=== PATIENT | female | born 1960 | race Native Hawaiian/Other Pacific Islander ===

== ENCOUNTER 2022-07-23 11:18 | Inpatient (IN) | payer SELFPAY ==
[2022-07-23] VITALS (12 sets, daily range): BP systolic 83–131; BP diastolic 51–88; PULSE 58–80; TEMP 97.5–98.6
[~2022-07-23] VITALS: Ht 152.4 cm; Wt 57.0 kg
[2022-07-23 12:45] LABS: BASO # 0.1 K/mm3 (0.0-0.2); BASO % 1.6 % (0.0-2.0); EOS # 0.4 K/mm3 (0.0-0.7); EOS % 4.9 % (0.0-4.0); GRAN % 69.4 % (42.2-75.2); HEMOGLOBIN 10.3 g/dl (12.5-16.0); LYMPH # 1.3 K/mm3 (1.2-3.4); LYMPH % 14.8 % (20.0-51.0); MEAN CELL VOLUME 94 fl (80.0-100.0); MEAN CORPUSCULAR HEMOGLOBIN 32 pg (27-31); MEAN CORPUSCULAR HGB CONC 34 g/dl (33.0-37.0); MEAN PLATELET VOLUME 10.9 fl (7.4-10.4); MONO # 0.8 K/mm3 (0.1-0.6); MONO % 9.1 % (1.7-9.3); PLATELET COUNT 96 K/mm3 (130-400); RED BLOOD COUNT 3.26 M/mm3 (4.10-5.30); REDCELL DISTRIBUTION WIDTH-CV 13.3 % (11.5-14.5)
[2022-07-23 12:46] LABS: HEMATOCRIT 30.5 % (37.0-47.0)
[2022-07-23 12:56] LABS: ALBUMIN 2.7 gm/dL (3.4-4.8); BILIRUBIN,TOTAL 1.2 mg/dL (0.2-1.2); C-REACTIVE PROTEIN 3.75 mg/dL (0.00-0.50); CALCIUM 8.1 mg/dL (8.4-10.2); CREATININE, serum 0.83 mg/dL (0.57-1.11); TOTAL PROTEIN 6.6 gm/dL (6.2-8.1)
--- NOTE | 2022-07-23 15:20 | NUR ---
pt admitted to floor, pt very drowsy. bs checked and was 46. dr loera notified, order for 1 amp dextrose to be administered.
[2022-07-23] MEDS ORDERED: ULTRAM 50MG TAB50 MG PO (16:45)
[2022-07-23] MEDS ORDERED: PREDNISONE20 MG PO (16:46)
--- NOTE | 2022-07-23 17:15 | NUR ---
pt off floor for surgery
--- NOTE | 2022-07-23 19:33 | NUR ---
RETURNS FROM SURGERY VIA BED. IS DROWSY, AWAKENS TO VERBAL STIMULI. BS=93. HAS IVF TO DALY INFUSING WITHOUT PROBLEM. FAMILY AT BEDSIDE.
--- NOTE | 2022-07-23 21:49 | NUR ---
PT TURNS TO LEFT SIDE. REPORTS PAIN TO ABD. HAS LAP SITES X3, 2 WITH BANDAIDS AND ONE GLUED. MEDICATED WITH MORPHINE 2MG IVP NOW. HAS BEEN UP TO BSC TO VOID. SCDS ON.
[2022-07-24] VITALS (12 sets, daily range): BP systolic 90–138; BP diastolic 54–69; PULSE 54–68; TEMP 97.4–97.9
--- NOTE | 2022-07-24 | NUR ---
ASSISTED TO BSC, VOIDS AND BACK TO BED. TAKING WATER WITHOUT N/V.
--- NOTE | 2022-07-24 05:00 | NUR ---
PT AWAKE, VSS. IVF CONTINUE TO DALY. ABD SOFT. OFFERED SOMETHING TO EAT, REFUSES AT THIS TIME. DRINKING WATER WITHOUT PROBLEM.
[2022-07-24 06:53] LABS: BASO % 0.3 % (0.0-2.0); EOS % 0.2 % (0.0-4.0); GRAN # 4.9 K/mm3 (1.4-6.5); GRAN % 86.3 % (42.2-75.2); LYMPH # 0.6 K/mm3 (1.2-3.4); LYMPH % 10.3 % (20.0-51.0); MEAN CELL VOLUME 96 fl (80.0-100.0); MEAN CORPUSCULAR HGB CONC 33 g/dl (33.0-37.0); MEAN PLATELET VOLUME 11.5 fl (7.4-10.4); MONO # 0.2 K/mm3 (0.1-0.6); MONO % 2.6 % (1.7-9.3); PLATELET COUNT 63 K/mm3 (130-400); RED BLOOD COUNT 2.92 M/mm3 (4.10-5.30); REDCELL DISTRIBUTION WIDTH-CV 13.3 % (11.5-14.5)
[2022-07-24 07:07] LABS: HEMOGLOBIN 9.2 g/dl (12.5-16.0); MEAN CORPUSCULAR HEMOGLOBIN 32 pg (27-31)
[2022-07-24 07:16] LABS: CALCIUM 7.3 mg/dL (8.4-10.2); CREATININE, serum 0.81 mg/dL (0.57-1.11); POTASSIUM 3.4 mmol/L (3.5-4.5)
--- NOTE | 2022-07-24 09:15 | NUR ---
Pt doing okay this morning. She appears to have some pain with movement, otherwise okay. Pt is refusing pain medication at this time. Pt is also refusing the prednisone, states she only takes it when she has knee pain. Pt ate small amount of breakfast, no complaints of N/V. Pt ambulated to the restroom with walker and standby assist. Pt reports that she does use a walker at home. No other needs, will continue to monitor
--- NOTE | 2022-07-24 11:46 | NUR ---
Desk Top Publisher rounds: Patient and [id number] in room. Patient had gall bladder surgery and now has been told that there is a problem with her liver. Desk Top Publisher prayed for healing and gave thanksgiving that the problem with the liver was discovered. After the prayer, the [id number] expressed concern that Medicaid would cover the costs. We talked about the holiday weekend and that the Medical Social Workers would likely be attempting to speak with the Medicaid personnel on Monday. [id number] asked for prayers for that. Desk Top Publisher prayed for Medicaid to pay the hospital costs.
--- NOTE | 2022-07-24 16:19 | NUR ---
This Hospital Account Manager and [facility] Hospital Account Manager attempted to meet with patient for intake assessment/discharge planning, notes concern for patient language barrier. Patient does request the lathe operator service is utilized. Patient chart indicates she lives in [place], uncertain if she has a spouse. Language barrier is noted. She reports she lives with her son, Renetta Delgado ([phone]); chart indicates she lives alone. She stated her son cares for her because she does not have a daughter to care for her, there may be cultural factors to further determine with lathe operator service. She states he does everything for her, "He is my guardian," but indicates this is not a legal guardian through the court system. She said he pays bills and provides food. She indicated she can't go back, but further information is difficult to discern at this time. She did indicate she has paperwork for Medicaid in process, "I need help." Hospital Account Manager requested for follow up with patient to complete intake assessment with the lathe operator service.
[2022-07-25] VITALS (11 sets, daily range): BP systolic 92–174; BP diastolic 48–87; PULSE 57–77; TEMP 97.6–99
--- NOTE | 2022-07-25 06:16 | NUR ---
PT REMAINS SBA FOR TRANSFFERS. ALL 3 INCISION SITES APPEAR CDI, WITH BANDAIDS IN PLACE. DENIES PAIN ON THIS SHIFT. LSCTA. BOWEL SOUNDS ARE ACTIVE. PT DID NOT SPEAK ON THIS SHIFT, BUT WOULD ANSWER 'YES' OR 'NO' QUESTIONS.
[2022-07-25 07:21] LABS: MEAN CELL VOLUME 94 fl (80.0-100.0); MEAN CORPUSCULAR HGB CONC 34 g/dl (33.0-37.0); MEAN PLATELET VOLUME 11.3 fl (7.4-10.4); PLATELET COUNT 69 K/mm3 (130-400); RED BLOOD COUNT 2.61 M/mm3 (4.10-5.30); REDCELL DISTRIBUTION WIDTH-CV 13.3 % (11.5-14.5)
[2022-07-25 07:22] LABS: HEMATOCRIT 24.5 % (37.0-47.0); HEMOGLOBIN 8.3 g/dl (12.5-16.0); MEAN CORPUSCULAR HEMOGLOBIN 32 pg (27-31)
[2022-07-25 07:44] LABS: CALCIUM 7.5 mg/dL (8.4-10.2); CREATININE, serum 1.15 mg/dL (0.57-1.11); MAGNESIUM 1.6 mg/dL (1.6-2.6); POTASSIUM 4.8 mmol/L (3.5-4.5)
[2022-07-25 07:57] LABS: BAND 13 % (0-10); LYMPHOCYTE 7 % (20.0-51.0); NEUTROPHILS 77 % (42.0-75.2)
[2022-07-25 07:58] LABS: PLATELET ESTIMATE DECREASED (NORMAL)
[2022-07-25 08:42] LABS: INR 1.3 (0.8-3.0); PROTHROMBIN TIME 14.9 SECONDS (9.7-12.8)
--- NOTE | 2022-07-25 09:00 | NUR ---
Pt doing okay, little motivation. Pt does appear weak transfering to the bathroom and then repositioning in bed. Family seems this is baseline for her. Pt does have complaints of pain with movement, but refuses pain medication. Pt is tolerating general diet with no complaints
--- NOTE | 2022-07-25 11:00 | NUR ---
Pt back resting in bed. Pt still just appears to have little energy. Continues to refuse pain medication. Pt getting up to the restroom with standby assist with a walker.
--- NOTE | 2022-07-25 13:20 | NUR ---
SW met with pt to complete intake with son and family bedside. Pt does not speak Bulgarian and son translated for pt. Son reports his mother lives at home with him and Alexandra is Renetta @ [phone]. Son, reports pt independent but needs help with showering. Pt has cane and walker. PCP is Dr. Brigido Mason at [facility] and gets medications from [facility] in [place]. Pt would like help with medicaid application and gave SW assistance application to turn in. No other needs at this time. SW await for further recommendations and follow up as needed. DC: Home
--- NOTE | 2022-07-25 21:37 | NUR ---
PATIENT IS RESTING IN BED.PATIENT REPORTS OF ABD PAIN MEDS ADMINISTERED PER MAR.PATIENT IS ON IV FLUIDS INFUSING WELL.ASSESSMENT DONE.SAFETY MEASURES IN PLACE.NO OTHER NEEDS AT THIS TIME.
--- NOTE | 2022-07-25 23:51 | NUR ---
PATIENT IS IN PAIN.PATIENT REFUSES TO HAVE MORE PAIN MEDICINE.
[2022-07-26 00:55] VITALS: BP 137/73
[2022-07-26 04:13] VITALS: BP 145/86; PULSE 64; TEMP 97.6
--- NOTE | 2022-07-26 05:56 | NUR ---
PATIENT STATES THAT SHE IS SCARED TO TAKE PAIN PILLS BECAUSE OF HER LIVER.IV FLIDS INFUSING WELL.SAFETY MEASURES IN PLACE.NO OTHER NEEDS AT THIS TIME.
[2022-07-26 06:28] LABS: BASO % 0.1 % (0.0-2.0); GRAN % 89.4 % (42.2-75.2); LYMPH # 0.6 K/mm3 (1.2-3.4); LYMPH % 5.7 % (20.0-51.0); MEAN CELL VOLUME 92 fl (80.0-100.0); MEAN CORPUSCULAR HGB CONC 34 g/dl (33.0-37.0); MEAN PLATELET VOLUME 11.2 fl (7.4-10.4); MONO # 0.5 K/mm3 (0.1-0.6); MONO % 4.2 % (1.7-9.3); PLATELET COUNT 80 K/mm3 (130-400); REDCELL DISTRIBUTION WIDTH-CV 13.2 % (11.5-14.5)
[2022-07-26 06:29] LABS: HEMOGLOBIN 7.9 g/dl (12.5-16.0); MEAN CORPUSCULAR HEMOGLOBIN 32 pg (27-31)
[2022-07-26 06:49] LABS: CALCIUM 7.4 mg/dL (8.4-10.2); CREATININE, serum 1.04 mg/dL (0.57-1.11); MAGNESIUM 2.2 mg/dL (1.6-2.6); POTASSIUM 4.3 mmol/L (3.5-4.5)
[2022-07-26 07:40] VITALS: BP 132/65; PULSE 56; TEMP 98.1
[2022-07-26 08:25] VITALS: BP_SYST 132
--- NOTE | 2022-07-26 08:25 | NUR ---
Pt. sitting up in bed. Pt. is a&OX3, assessment complete. INT to lt. ac patent, IV fluids infusing per orders. Abd. incisions CDI. Pt. denies pain or other needs. Call light within reach.
[2022-07-26] MEDS ORDERED: ROXICODONE 55 MG/TAB PO (08:34)
--- NOTE | 2022-07-26 10:05 | NUR ---
Pt. with discharge orders. INT discontinued from lt. ac. Reviewed and gave discharge paperwork to pt. and son. Pt. and son voice understanding. Pt. escorted out by ANGELES.
== END 2022-07-26 10:05 | disposition home or self-care (01) | DRG 419 ==
LOC: COL.ER 11:18 → SURG 14:01 → EDBEDREQ 14:26 → SURG 18:43
PROVIDERS: Internal Medicine; Nurse Practitioner; Student in an Organized Health Care Education/Training Program; ADMIT Surgery
PROC: 0FB13ZX Excision of Right Lobe Liver, Percutaneous Approach, Diagnostic (ICD-10-PCS; 2022-07-23)
PROC: 0FT44ZZ Resection of Gallbladder, Percutaneous Endoscopic Approach (ICD-10-PCS; principal; 2022-07-23 16:30)
DX: K80.01 Calculus of gallbladder with acute cholecystitis with obstruction (principal); D69.6 Thrombocytopenia, unspecified; K74.60 Unspecified cirrhosis of liver; B19.20 Unspecified viral hepatitis C without hepatic coma; G89.29 Other chronic pain; M54.50 Low back pain, unspecified; I95.9 Hypotension, unspecified; D64.9 Anemia, unspecified; K82.8 Other specified diseases of gallbladder; E16.2 Hypoglycemia, unspecified; Z23 Encounter for immunization; Z79.52 Long term (current) use of systemic steroids
CPT/HCPCS: OP; J0171; J0696; J1100; J2270; J2310; J2370; J2405; J2543; J2704; J3010; J3475; J7030; J7040; J7120; J7121; J7512